=== PATIENT | male | born 1975 | race American Indian/Alaskan Native ===

== ENCOUNTER 2019-01-30 09:20 | Emergency (ER) | payer OTHER ==
--- NOTE | 2019-01-30 11:09 | Ultrasound Report ---
PROCEDURE: US TESTICULAR DOPPLER COMP TECHNIQUE: Real-time santana-scale and color flow Doppler sonography in multiple planes of the scrotum, testicles, and epididymes was performed. Velocity spectral waveform analysis and color Doppler imagi ng of the arterial inflow and venous outflow of the testicles was performed with image documentation. HISTORY: testicular pain and swelling COMPARISONS: None . FINDINGS: RIGHT TESTICLE: Size: 4.8 x 2.2 x 2.8 cm . Appearance: Somewhat striated appearance. No focal internal lesion . Arterial blood flow: Normal spectral waveforms, flow velocities and color flow images.. Venous blood flow: Normal spectral waveforms and color flow images. Right epididymis: Normal size and echotexture . 8 mm epididymal head cyst. Hydrocele: None . LEFT TESTICLE Size: 4.4 x 2.1 x 2.9 cm . Appearance: Somewhat striated appearance. No focal internal lesion . Arterial blood flow: Normal spectral waveforms, flow velocities and color flow images.. Venous blood flow: Normal spectral waveforms and color flow images. Left epididymis: Enlarged and heterogeneous. There are multiple cysts within the epididymal head. Th e largest is 2 cm in size and contains internal echogenic debris. There are several cysts within the body measuring up to 1.2 cm, with internal echogenic debris . Hydrocele: None . IMPRESSION: Striated appearance of the bilateral testicles. Enlarged and heterogeneous left epididymis with mildl y complex cysts containing echogenic debris. Findings likely represent epididymoorchitis . No sonographic evidence for testicular torsion. This document is electronically signed by Shruthi Stephenson MD., January 30 2019 11:06:36 AM ET
[2019-01-30] MEDS ORDERED: ROCEPHIN IM ONE (11:42)
[2019-01-30] MEDS ORDERED: XYLOCAINE 1% MPF 5 mL INFILTRATI ONE (11:42)
--- NOTE | 2019-01-30 11:49 | Emergency Department Report ---
HPI - General Chief Complaint: Urogenital-Male Time Seen by Provider: 01/30/19 10:04 - HPI HPI: 43-year-old male presents to the emergency department complaint of a 3 day history of nontraumatic left testicular pain and swelling. He has not taken anything for her symptoms prior to presentation. He denies any dysuria, hematuria, penile discharge. The patient says he is sexually active and does not always use protection. No recent travel or sick contacts at home. He does not have a primary care physician. ED Past Medical Hx - Past Medical History Previous Medical History?: No - Surgical History Past Surgical History?: No - Social History Smoking Status: Never Smoker Substance Use Type: None - Medications Home Medications: Home Medications Medication Instructions Recorded Confirmed Last Taken Type Doxycycline [Vibramycin CAP] 100 mg PO Q12HR #20 capsule 01/30/19 Unknown Rx Ibuprofen 800 mg PO Q8H PRN #20 tablet 01/30/19 Unknown Rx ED Review of Systems ROS: Stated complaint: TESTICLE PAIN Other details as noted in HPI Comment: All other systems reviewed and negative Constitutional: denies: chills, fever Eyes: denies: eye pain, vision change ENT: denies: ear pain, throat pain Respiratory: denies: cough, shortness of breath Cardiovascular: denies: chest pain, palpitations Gastrointestinal: denies: abdominal pain, vomiting Genitourinary: testicular pain. denies: dysuria, hematuria, discharge Musculoskeletal: denies: back pain, arthralgia Skin: denies: rash, lesions Neurological: denies: headache, weakness Physical Exam - Physical Exam Vital Signs: Vital Signs 01/30/19 09:22 Temperature 98 F Pulse Rate 82 Respiratory 16 Rate Blood Pressure 146/82 O2 Sat by Pulse 99 Oximetry Physical Exam: GENERAL: The patient is well-developed well-nourished. HEENT: Normocephalic. Atraumatic. Patient has moist mucous membranes. EYES: Extraocular motions are intact. NECK: Supple. Trachea is midline. CHEST/LUNGS: Clear to auscultation. There is no respiratory distress noted. HEART/CARDIOVASCULAR: Regular. There is no tachycardia. There is no obvious murmur. ABDOMEN: Abdomen is soft, nontender. Patient has normal bowel sounds. There is no abdominal distention. SKIN: Skin is warm and dry. NEURO: The patient is awake, alert, and oriented. The patient is cooperative. The patient has no focal neurologic deficits. The patient has normal speech. MUSCULOSKELETAL: There is no tenderness or deformity. There is no limitation range of motion. There is no evidence of acute injury. : No palpable inguinal hernia. There is reproducible tenderness to palpation to the left testicle and when trying to palpate the left inguinal canal. ED Course Vital Signs 01/30/19 09:22 Temperature 98 F Pulse Rate 82 Respiratory 16 Rate Blood Pressure 146/82 O2 Sat by Pulse 99 Oximetry ED Medical Decision Making - Radiology Data Radiology results: report reviewed PROCEDURE: US TESTICULAR DOPPLER COMP TECHNIQUE: Real-time santana-scale and color flow Doppler sonography in multiple planes of the scrotum, testicles, and epididymes was performed. Velocity spectral waveform analysis and color Doppler imaging of the arterial inflow and venous outflow of the testicles was performed with image documentation. HISTORY: testicular pain and swelling COMPARISONS: None . FINDINGS: RIGHT TESTICLE: Size: 4.8 x 2.2 x 2.8 cm . Appearance: Somewhat striated appearance. No focal internal lesion . Arterial blood flow: Normal spectral waveforms, flow velocities and color flow images.. Venous blood flow: Normal spectral waveforms and color flow images. Right epididymis: Normal size and echotexture . 8 mm epididymal head cyst. Hydrocele: None . LEFT TESTICLE Size: 4.4 x 2.1 x 2.9 cm . Appearance: Somewhat striated appearance. No focal internal lesion . Arterial blood flow: Normal spectral waveforms, flow velocities and color flow images.. Venous blood flow: Normal spectral waveforms and color flow images. Left epididymis: Enlarged and heterogeneous. There are multiple cysts within the epididymal head. The largest is 2 cm in size and contains internal echogenic debris. There are several cysts within the body measuring up to 1.2 cm, with internal echogenic debris . Hydrocele: None . IMPRESSION: Striated appearance of the bilateral testicles. Enlarged and heterogeneous left epididymis with mildly complex cysts containing echogenic debris. Findings likely represent epididymoorchitis . No sonographic evidence for testicular torsion. This document is electronically signed by Shruthi Porter MD., January 30 2019 11:06:36 AM ET Transcribed By: PAGE Dictated By: SHRUTHI PORTER MD Electronically Authenticated By: SHRUTHI PORTER MD Signed Date/Time: 01/30/19 1111 - Medical Decision Making Patient presents with a 3 day history of nontraumatic left testicular and scrotal pain. Ultrasound appears consistent with epididymoorchitis. Since the patient is sexually active and does not always use protection, he was treated empirically with a dose of Rocephin. He will also go on doxycycline twice daily for 10 days. Urinalysis was mostly clean. Vital signs stable including being afebrile. He was given referrals for urology. He will return to the ER with any worsening of his symptoms or any acute distress. - Differential Diagnosis UTI, epididymitis, orchitis, hernia Critical Care Time: No Critical care attestation.: If time is entered above; I have spent that time in minutes in the direct care of this critically ill patient, excluding procedure time. ED Disposition Clinical Impression: Epididymo-orchitis, acute, Left testicular pain Disposition: TO HOME OR SELFCARE Is pt being admited?: No Condition: Stable Instructions: Epididymo-orchitis (ED), Testicle Pain (ED) Additional Instructions: Please follow up with a primary care physician. You will also need to see a urologist and I am giving you a referral for a local urologist, Dr. Newman. Take the antibiotics as prescribed. Return to the emergency Department with any worsening of your symptoms or any acute distress. Prescriptions: Ibuprofen 800 mg PO Q8H PRN #20 tablet PRN Reason: Pain , Severe (7-10) Doxycycline [Vibramycin CAP] 100 mg PO Q12HR #20 capsule Referrals: [facility] [Other] - 2-3 Days EUGENIO NEWMAN MD [Staff Physician] - 2-3 Days Time of Disposition: 12:08
[2019-01-30 11:56] LABS: Bilirubin,Urine NEG (Negative); Blood,Urine NEG (Negative); Color,Urine Yellow (Yellow); Hyaline Casts,Urine 1 /LPF; Mucus,Urine FEW /HPF; Protein,Urine <15 mg/dL mg/dL (Negative); RBC,Urine < 1.0 /HPF (0.0-6.0); Urobilinogen,Urine < 2.0 mg/dL (<2.0); WBC,Urine < 1.0 /HPF (0.0-6.0)
[2019-01-30 12:53] VITALS: BP 123/79
== END 2019-01-30 13:00 | disposition home or self-care (01) ==
LOC: ED 09:20
DX: N45.3 Epididymo-orchitis (principal)
CPT/HCPCS: 81001; 93975; 96372; 99284; J0696